=== PATIENT | male | born 1940 | race Two or more races ===

== ENCOUNTER 2020-12-11 05:35 | Day surgery (SDC) | payer OTHER ==
[~2020-12-11 05:35] MED LIST: AMLODIPINE BESYL5 MG PO; LISINOPRIL10 MG PO; NABUMETONE500 MG PO; TOPROL XL50 M1 PO; TREXALL5 MG PO
[2020-12-11] MEDS ORDERED: TYLENOL ARTHRI650 MG PO (07:13)
[2020-12-11] MEDS ORDERED: ULTRAM50 MG PO (07:13)
[2020-12-11] MEDS ORDERED: MIRALAX17 GM PO (07:13)
== END 2020-12-11 13:25 | disposition home or self-care (01) ==
LOC: CIR.AMB 05:35
PROVIDERS: ATTEND Surgery
DX: K40.90 Unilateral inguinal hernia, without obstruction or gangrene, not specified as recurrent (principal); Z20.822 Contact with and (suspected) exposure to COVID-19